=== PATIENT | female | born 1940 | race Caucasian/White ===

== ENCOUNTER 2019-07-18 14:04 | Observation (INO) | payer MEDICARE, OTHER ==
[~2019-07-18] VITALS: Ht 162.6 cm; Wt 65.6 kg
[2019-07-18] MEDS ORDERED: OXYB5 PO (14:58)
[2019-07-18 15:26] LABS: BASOPHILS ABSOLUTE AUTO 0.07 K/mm3 (0.00-0.23); BASOPHILS PERCENT AUTO 1 % (0-2); EOSINOPHILS ABSOLUTE AUTO 0.17 K/mm3 (0.00-0.68); EOSINOPHILS PERCENT AUTO 2 % (0-6); Hematocrit 43.8 % (33.0-51.0); Hemoglobin 14.5 g/dL (11.5-16.0); IMMATURE GRAN ABSOLUTE AUTO 0.03 K/mm3 (0.00-0.10); IMMATURE GRAN PERCENT AUTO 0 % (0-1); LYMPHOCYTES ABSOLUTE AUTO 2.53 K/mm3 (0.84-5.20); LYMPHOCYTES PERCENT AUTO 35 % (21-46); MONOCYTES ABSOLUTE AUTO 0.58 K/mm3 (0.16-1.47); MONOCYTES PERCENT AUTO 8 % (4-13); Mean Corpuscular HGB 30.6 pg (26.0-34.0); Mean Corpuscular HGB Conc 33.1 g/dL (31.5-36.5); Mean Corpuscular Volume 92 fL (80-100); Mean Platelet Volume 9.8 fL (9.1-12.4); NEUTROPHILS ABSOLUTE AUTO 3.92 K/mm3 (1.96-9.15); NEUTROPHILS PERCENT AUTO 54 % (41-73); Platelet Count 253 K/mm3 (150-400); RDW Coefficient Variation 12.6 % (11.7-14.2); RDW Standard Deviation 43.3 fL (35.1-46.3); Red Blood Cell Count 4.74 M/mm3 (3.80-5.20)
[2019-07-18 15:44] LABS: Alanine Aminotransfer (ALT/SGP 21 U/L (12-78); Albumin, Blood 3.8 g/dL (3.4-5.0); Albumin/Globulin Ratio 1.1 (0.8-1.8); Alk Phos 95 U/L (50-136); Anion Gap 2 mmol/L (6-16); Aspartate Aminotrans (AST/SGOT 17 U/L (12-37); Bilirubin, Total 0.2 mg/dL (0.1-1.0); Blood Urea Nitrogen 11 mg/dL (8-24); Bun/Creatinine Ratio 14.6 (12.0-20.0); CO2, Blood 29 mmol/L (21-32); Calcium, Blood 8.6 mg/dL (8.5-10.1); Chloride, Blood 110 mmol/L (98-108); Creatinine, Blood 0.75 mg/dL (0.40-1.00); Globulin, Blood 3.6 g/dL (2.2-4.0); Glomerular Filtration Rate >60 (60-); Glucose, Blood 126 mg/dL (70-99); Magnesium, Blood 2.2 mg/dL (1.6-2.4); Potassium, Blood 3.6 mmol/L (3.5-5.5); Sodium, Blood 141 mmol/L (136-145); Total Protein, Blood 7.4 g/dL (6.4-8.2)
[2019-07-18 15:46] LABS: Source, Urine Clean Catch
[2019-07-18 15:52] LABS: Bilirubin, Urine Neg (Neg); Blood, Urine 1+ (Neg); Glucose Qualitative, Urine Neg (Neg); Ketones, Urine Neg (Neg); Leukocyte Esterase, Urine 2+ (Neg); Nitrite, Urine Neg (Neg); Protein, Urine Neg (Neg); Urobilinogen, Urine NORM (Normal)
[2019-07-18 16:02] LABS: Appearance, Urine Clear (Clear); Color, Urine Pale Yellow (P-Yellow)
[2019-07-18 16:16] LABS: Squamous Epithelial Cells Few /hpf (Few); White Blood Cells, Urine 0-2 /hpf (0-5)
[2019-07-18 16:17] LABS: Bacteria Few /hpf; Red Blood Cells, Urine 0-2 /hpf (0-2)
[2019-07-18 18:04] LABS: U Amphetamine Screen Not Detected; U Barbituate Screen Not Detected; U Benzodiazapine Screen Not Detected; U Cocaine Screen Not Detected; U Methamphetamine Screen Not Detected
[2019-07-18 18:05] LABS: U Buprenorphine Screen Not Detected; U Cannabinoids Screen Not Detected; U Methadone Screen Not Detected; U Opiates Screen Not Detected; U Oxycodone Screen Not Detected; U Phencyclidine Screen Not Detected; U Propoxyphene Screen Not Detected
[2019-07-18] MEDS ORDERED: CALCIUM + D3 E1 EACH PO (20:28)
--- NOTE | 2019-07-18 21:00 | NUR ---
RADHA ARRIVED TO THE FLOOR VIA GURNEY. SHE WAS ADMITTED FOR TIA OCCURANCE. STATES TODAY THERE WAS A LAPSE IN TIME THAT SHE CAN NOT REMEMBER. HER SAID SHE WAS VERY DISORIENTED AND CONFUSED, NO SIGNS OF FACIAL DROOP OR SLURRED SPEECH JUST LOSE OF MEMORY. NEURO CHECKS WERE ALL GOOD. IS ABLE TO STATE ORIENTATION AND ABILITY TO COMPERHEND WHAT IS GOING ON. SETTLED INTO THE ROOM, ASSESSMENT AND HISTORY COMPLETED. CALL LIGHT IN REACH.
--- NOTE | 2019-07-19 | NUR ---
PATIENT RESTING IN ROOM, AWAKENS EASILY, NEURO CHECKS STILL NEGATIVE. WILL CONTINUE TO MONITOR. CALL LIGHT IN REACH.
[2019-07-19 05:45] LABS: CHOL/HDL RATIO 3.4; Cholesterol 173 mg/dL (50-200); HDL Cholesterol 51 mg/dL (>39); LDL/HDL RATIO 2.1; Low Density Lipoprotein Chol 107 mg/dL (0-110); Triglycerides 75 mg/dL (30-160); Very Low Density Lipoprot Chol 15 mg/dL (6-32)
--- NOTE | 2019-07-19 05:50 | NUR ---
SHIFT SUMMARY: RADHA WAS ADMITTED LAST NIGHT FOR MEMORY LOSS R/T POSSIBLE TIA. SINCE SHE HAS BEEN ON THE FLOOR HER NEURO EXAMS HAVE BEEN NEGATIVE. SHE HAS BEEN SLEEPING THROUGHOUT THE NIGHT WITH NO ACUTE CHANGES OR CONCERNS. HAS BEEN INDEPENDENT TO THE BATHROOM AND WAS STABLE. NOTHING FUTHER TO WRITE WILL REPORT TO DAY SHIFT RN.
--- NOTE | 2019-07-19 15:12 | NUR ---
echocardiogram complete
[2019-07-19] MEDS ORDERED: ASPI81CH PO (15:51)
[2019-07-19] MEDS ORDERED: ATOR20 PO (15:52)
--- NOTE | 2019-07-19 17:29 | NUR ---
PATIENT DISCHARGE: PATIENT DISCHARGED TO HOME THIS SHIFT. MEDICATION RECONCILIATION COMPLETED; MED LIST FAXED TO [id number]. DISCHARGE EDUCATION COMPLETED WITH PATIENT. PATIENT TRANSPORTED TO EXIT BY [facility] STAFF WITH WHEELCHAIR AT 1705. PATIENT DEPARTED [facility] VIA PRIVATE AUTO.
== END 2019-07-19 17:05 | disposition home or self-care (01) ==
LOC: ER 14:04 → MEDS 14:05
PROVIDERS: Nurse Practitioner Acute Care; Physician Assistant; ADMIT Hospitalist
DX: G45.9 Transient cerebral ischemic attack, unspecified (principal); I69.321 Dysphasia following cerebral infarction; N32.81 Overactive bladder; R41.3 Other amnesia; Z85.828 Personal history of other malignant neoplasm of skin; Z79.899 Other long term (current) drug therapy
CPT/HCPCS: 36415; 70450; 80053; 80061; 81001; 83735; 85025; 87086; 93005; 93010; 93306; 93880; 99285-25; G0378